=== PATIENT | male | born 1990 | race Caucasian/White ===

== ENCOUNTER 2019-04-22 23:22 | Inpatient (IN) | payer OTHER, SELFPAY ==
[~2019-04-22 23:22] MED LIST: BACT800T5 PO; NORC1TAB7 PO
[2019-04-22] MEDS ORDERED: LORazepam 2 MG/ML VIAL (J2060) IV STA (23:28)
[2019-04-22] MEDS ORDERED: NS 1,000 ML IV ONE (23:30)
[2019-04-22 23:42] LABS: HEMATOCRIT 46.2 % (42.0-52.0); MEAN CORPUSCULAR HEMOGLOBIN 29.5 pg (27.0-33.0); MEAN CORPUSCULAR HGB CONC 32.5 g/dl (32.0-36.5); MEAN CORPUSCULAR VOLUME 90.9 fl (80.0-96.0); PLATELET COUNT, AUTOMATED 321 10^3/uL (150-450); RED BLOOD COUNT 5.08 10^6/uL (4.30-6.10); WHITE BLOOD COUNT 11.7 10^3/uL (4.0-10.0)
[2019-04-22] MEDS ORDERED: ONDANSETRON 4MG/2ML VIAL (J2405) As Ordered ONE (23:47)
[2019-04-23] VITALS (10 sets, daily range): BP systolic 115–130; BP diastolic 60–84; O2SAT 97–100
[2019-04-23] MEDS ORDERED: ONDANSETRON 4MG/2ML VIAL (J2405) IV ONE
[2019-04-23 00:20] LABS: ACETAMINOPHEN LEVEL < 2.0 UG/ML (10.0-30.0); ALBUMIN 4.2 GM/DL (3.2-5.2); ALT/SGPT 51 U/L (12-78); BILIRUBIN,DIRECT < 0.1 MG/DL (0.0-0.2); BILIRUBIN,TOTAL 0.3 MG/DL (0.2-1.0); BLOOD UREA NITROGEN 10 MG/DL (7-18); CARBON DIOXIDE LEVEL 28 MEQ/L (21-32); CHLORIDE LEVEL 107 MEQ/L (98-107); CK-MB VALUE MASS 1.5 NG/ML (<3.6); CPK CREATINE PHOSPHOKINASE 282 U/L (39-308); CREATININE FOR GFR 1.37 MG/DL (0.70-1.30); ETHYL ALCOHOL (ETHANOL) 0.357 % (0.000-0.010); GLOMERULAR FILTRATION RATE > 60.0 (>60); GLUCOSE, FASTING 116 MG/DL (70-100); MB/CK RELATIVE INDEX 0.53 (< OR =4); POTASSIUM SERUM 4.5 MEQ/L (3.5-5.1); SALICYLATE LEVEL < 1.7 MG/DL (5.0-30.0); SODIUM LEVEL 143 MEQ/L (136-145); TOTAL PROTEIN 8.4 GM/DL (6.4-8.2); TROPONIN I < 0.02 NG/ML (< 0.10)
[2019-04-23 00:21] LABS: EOSINOPHILS 4 % (0-3); LYMPHOCYTES 44 % (16-44); MONOCYTES 7 % (0-5); NEUTROPHILS 45 % (28-66)
[2019-04-23 00:22] LABS: ANISOCYTOSIS 1+; PLATELET ESTIMATE NORMAL (NORMAL); POLYCHROMASIA 1+
--- NOTE | 2019-04-23 00:36 | REPVR ---
PROCEDURE INFORMATION: Exam: CT Head Without Contrast Exam date and time: 04/22/2019 11:28 PM Age: 28 years old Clinical indication: Injury or trauma; Fall; Initial encounter; Concussion / head injury; Additional info: Altered mental status TECHNIQUE: Imaging protocol: Computed tomography of the head without contrast. Axial and coronal reformatted images were created and reviewed. Radiation optimization: All CT scans at this facility use at least one of these dose optimization techniques: automated exposure control; mA and/or kV adjustment per patient size (includes targeted exams where dose is matched to clinical indication); or iterative reconstruction. COMPARISON: No relevant prior studies available. FINDINGS: Brain: No CT evidence of acute intracranial hemorrhage or acute territorial infarction. No significant mass effect or midline shift. Basal cisterns patent. Ventricles: Normal in size and configuration. Bones/joints: Mild age-indeterminate deformity of the anterior nasal bones. Sinuses: Minimal ethmoid, maxillary and left sphenoid sinus mucosal thickening. Mastoid air cells: Grossly unremarkable. Soft tissues: Mild multifocal scalp swelling. Mild right perinasal/premaxillary soft tissue swelling. IMPRESSION: 1. No CT evidence of acute intracranial pathology. 2. Mild age-indeterminate deformity of the anterior nasal bones. 3. Additional findings, as above. Electronically signed by: Osmany Sherwood On 04/23/2019 00:36:07 AM
--- NOTE | 2019-04-23 00:38 | REPVR ---
PROCEDURE INFORMATION: Exam: CT Maxillofacial Without Contrast, Sinus Exam date and time: 04/22/2019 11:28 PM Age: 28 years old Clinical indication: Injury or trauma; Fall; Initial encounter; Concussion /head injury; Loss of consciousness not known; Additional info: Altered mental status TECHNIQUE: Imaging protocol: CT Maxillofacial without contrast. Focus on the sinuses. Axial and coronal reformatted images were created and reviewed. Radiation optimization: All CT scans at this facility use at least one of these dose optimization techniques: automated exposure control; mA and/or kV adjustment per patient size (includes targeted exams where dose is matched to clinical indication); or iterative reconstruction. COMPARISON: No relevant prior studies available. FINDINGS: Frontal sinuses: Normal. No air-fluid levels. Ethmoid air cells: Minimal ethmoid mucosal thickening. Sphenoid sinuses: Small dependent fluid in the left sphenoid sinus. Maxillary sinuses: Minimal maxillary sinus mucosal thickening. Small dependent fluid level in the right maxillary sinus. Ostiomeatal units patent. Orbits: Orbits are normal. Globes are unremarkable. Nasal cavity/Septum: Unremarkable. Soft tissues: Mild multifocal scalp swelling. Mild right perinasal/premaxillary soft tissue swelling. Bones/joints: Mild age-indeterminate deformity of the anterior nasal bones. IMPRESSION: 1. Mild age-indeterminate deformity of the anterior nasal bones. 2. Additional findings, as above. Electronically signed by: Osmany Sherwood On 04/23/2019 00:38:47 AM
--- NOTE | 2019-04-23 00:40 | REPVR ---
PROCEDURE INFORMATION: Exam: CT Cervical Spine Without Contrast Exam date and time: 04/22/2019 11:28 PM Age: 28 years old Clinical indication: Injury or trauma; Fall; Initial encounter; Concussion /head injury; Additional info: Altered mental status TECHNIQUE: Imaging protocol: Computed tomography images of the cervical spine without contrast. Axial, coronal and sagittal reformatted images were created and reviewed. Radiation optimization: All CT scans at this facility use at least one of these dose optimization techniques: automated exposure control; mA and/or kV adjustment per patient size (includes targeted exams where dose is matched to clinical indication); or iterative reconstruction. COMPARISON: No relevant prior studies available. FINDINGS: Vertebrae: Mild reversal of the normal cervical lordosis. Alignment anatomic. Mild dextroscoliosis. No CT evidence of acute fracture, dislocation or subluxation. Vertebral body heights maintained. Discs/Spinal canal/Neural foramina: Mild multilevel degenerative changes, characterized by disc space narrowing, osteophytosis and uncovertebral and facet joint hypertrophy. Mild multilevel spinal canal and neural foraminal narrowing. Soft tissues: Grossly unremarkable Additional findings: Old right posterior 2nd rib fracture. IMPRESSION: 1. No CT evidence of acute cervical spine traumatic injury. 2. Additional findings, as above. Electronically signed by: Osmany Sherwood On 04/23/2019 00:40:40 AM
[2019-04-23] MEDS ORDERED: PROPOFOL 1,000 MG/100 ML VIAL As Ordered ONE (01:46)
[2019-04-23] MEDS ORDERED: SUCCINYLCHOLINE INJ 200 MG/10 ML VIAL (J0330) IV STA (02:32)
[2019-04-23] MEDS ORDERED: ETOMIDATE INJ 20MG/10ML VIAL IV ONE (02:45)
[2019-04-23] MEDS ORDERED: propofoL 1,000 MG in IV 1 EA IV SCH (02:45)
[2019-04-23] MEDS: propofoL 1,000 MG in IV 1 EA IV SCH ×3 (02:59→08:37)
[2019-04-23] MEDS ORDERED: NS 1,000 ML IV SCH (03:00)
[2019-04-23] MEDS ORDERED: MIDAZOLAM INJ 2 MG/2 ML VIAL (J2250) IV PRN (03:00)
[2019-04-23 05:16] LABS: BASO % 0.2 % (0.0-1.0); EOS % 0.2 % (0.0-3.0); HEMATOCRIT 44.2 % (42.0-52.0); HEMOGLOBIN 14.6 g/dl (13.5-17.5); LYMPH # 3.4 10^3/uL (1.5-5.0); LYMPH % 27.3 % (24.0-44.0); MEAN CORPUSCULAR HEMOGLOBIN 29.7 pg (27.0-33.0); MONO # 0.7 10^3/uL (0.0-0.8); MONO % 5.7 % (0.0-5.0); NEUTROPHILS # 8.1 10^3/uL (1.5-8.5); NEUTROPHILS % 65.2 % (36.0-66.0); PLATELET COUNT, AUTOMATED 271 10^3/uL (150-450); RED BLOOD COUNT 4.91 10^6/uL (4.30-6.10); WHITE BLOOD COUNT 12.4 10^3/uL (4.0-10.0)
[2019-04-23 05:42] LABS: AMPHETAMINES LEVEL URINE NEGATIVE (NEGATIVE); BARBITURATES URINE NEGATIVE (NEGATIVE); BENZODIAZEPINES URINE NEGATIVE (NEGATIVE); CANNABINOIDS URINE NEGATIVE (NEGATIVE); COCAINE METABOLITE URINE NEGATIVE (NEGATIVE); METHADONE URINE NEGATIVE (NEGATIVE); OPIATES URINE NEGATIVE (NEGATIVE); PHENCYCLIDINE URINE NEGATIVE (NEGATIVE)
--- NOTE | 2019-04-23 05:47 | ECGEPIP ---
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
[2019-04-23 05:51] LABS: ALBUMIN 3.8 GM/DL (3.2-5.2); ALT/SGPT 42 U/L (12-78); BILIRUBIN,TOTAL 0.5 MG/DL (0.2-1.0); BLOOD UREA NITROGEN 10 MG/DL (7-18); CALCIUM LEVEL 7.7 MG/DL (8.5-10.1); CARBON DIOXIDE LEVEL 27 MEQ/L (21-32); CHLORIDE LEVEL 106 MEQ/L (98-107); CHOLESTEROL LEVEL 193 MG/DL (< 200); CPK CREATINE PHOSPHOKINASE 274 U/L (39-308); CREATININE FOR GFR 0.96 MG/DL (0.70-1.30); GLOMERULAR FILTRATION RATE > 60.0 (>60); GLUCOSE, FASTING 104 MG/DL (70-100); LDH LACTATE DEHYDROGENASE 247 U/L (87-241); PHOSPHORUS LEVEL 4.8 MG/DL (2.5-4.9); POTASSIUM SERUM 3.9 MEQ/L (3.5-5.1); SODIUM LEVEL 141 MEQ/L (136-145); TOTAL PROTEIN 7.2 GM/DL (6.4-8.2); TRIGLYCERIDES LEVEL 590 MG/DL (<150)
[2019-04-23] MEDS: HEPARIN SOD (PORCINE) 5000 UNITS/ML VIAL (J1644 PER 1000UNITS) SC SCH ×3 (06:06→20:25)
[2019-04-23] MEDS: PIPERACILLIN/TAZOBACTAM SOD 3.375 GM in D5W MINI-BAG PLUS 50 ML IV SCH ×4 (06:06→20:33)
[2019-04-23] MEDS: IPRATROPIUM 0.5MG/ALBUTEROL 2.5MG INH SOL UD 3ML (DUONEB)(J7620) NEB SCH ×4 (08:03→20:00)
--- NOTE | 2019-04-23 08:25 | REP ---
Status post intubation. Comparison: 03/08/2007. Findings: Examination is limited by portable technique, underpenetration, and positioning as well as poor inspiratory effort. The endotracheal tube is nearing the sloane. Scattered opacities cannot be excluded. No definite effusion. No obvious pneumothorax. Skeletal structures are grossly intact. Impression: 1. Endotracheal tube is nearing the sloane and may warrant repositioning. 2. Scattered alveolar opacities cannot be excluded. Electronically Signed by Jose Carlos Burnett MD 04/23/2019 08:16 A
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
[2019-04-23] MEDS ORDERED: PANTOPRAZOLE 40MG INJ (PROTONIX) (C9113) IV SCH (09:00)
--- NOTE | 2019-04-23 10:57 | CCN ---
DATE: 04/23/2019 START TIME: 0935 hours STOP TIME: 1004 hours I again attended Mr. Erickson here in the intensive care unit. The patient has been examined, the chart reviewed. I spoke at length with the nurse at the bedside. He is more appropriate to interactions this morning even on low dose propofol. When sedation lightened even more, he was intermittently combative. Maximum temperature (T max) 97.5, blood pressure in the 110s, heart rate 80s and regular, respiratory rate 16 to 20 and unlabored. No new imaging from earlier this morning. Repeat white blood cell count 12.4, hemoglobin 14.6, platelet count 271,000. Sodium 141, potassium (K) of 3.9, chloride 106, CO2 of 27, BUN 10, creatinine 0.96. On exam, he has a contusion on the right forehead. Pupils reactive. Sclerae are clear. Trachea is in the midline. Chest is clear to auscultation and percussion. Chest is symmetric and no significant focal adventitious breath sounds identified. Tactile fremitus palpable throughout. Cardiac exam regular without gallop. Peripheral pulses palpable, no edema. Abdomen is soft and nontender with active bowel sounds. No convincing organomegaly or masses. Extremities: No cyanosis or clubbing. Neurologically, he is sedate but does move all extremities. The most pressing problems requiring my presence at the bedside: 1. Alcohol intoxication with obtundation. 2. Aspiration. 3. Respiratory failure on the basis of the above. RECOMMENDATIONS: At this point, we will lighten his sedation and hopefully be able to extubate him. My suspicion is that he may not be cooperative as planned. We will deal with that accordingly. As for now, we will continue intravenous antibiotics as he clearly aspirated but hopefully we can change to orals as soon as we can. Will continue IV hydration. He is on ulcer and deep vein thrombosis (DVT) prophylaxis. He will not need delirium tremens precautions as he most likely has significant alcohol still on board. Proceed as outlined above. I left the bedside at 1004 hours. An additional 29 minutes of critical care time was delivered at the bedside not including procedures.
[2019-04-23] MEDS ORDERED: AUGM875T28 PO (11:23)
[2019-04-23] MEDS: CHLORHEXIDINE GLUCONATE 0.12 % 15ML UDC (PERIDEX ORAL RINSE) MT SCH ×2 (11:23→20:29)
[2019-04-23] MEDS ORDERED: OXAZEPAM 10 MG CAP PO PRN (11:30)
[2019-04-23] MEDS ORDERED: KETOROLAC 30 MG/ML VIAL (J1885) IV ONE (11:45)
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
[2019-04-23] MEDS ORDERED: SUCCINYLCHOLINE 100 MG/5 ML SYRINGE (J0330) ONE (17:54)
[2019-04-23] MEDS ORDERED: ETOMIDATE INJ 20MG/10ML VIAL ONE (17:54)
[2019-04-23] MEDS ORDERED: IBUPROFEN 600 MG TAB PO PRN (23:15)
[2019-04-24] MEDS: PIPERACILLIN/TAZOBACTAM SOD 3.375 GM in D5W MINI-BAG PLUS 50 ML IV SCH ×2 (03:28→08:22)
[2019-04-24] MEDS: IPRATROPIUM 0.5MG/ALBUTEROL 2.5MG INH SOL UD 3ML (DUONEB)(J7620) NEB SCH ×3 (04:00→07:51)
[2019-04-24 05:00] VITALS: BP 120/76
[2019-04-24] MEDS: HEPARIN SOD (PORCINE) 5000 UNITS/ML VIAL (J1644 PER 1000UNITS) SC SCH (05:21)
[2019-04-24 07:21] LABS: BASO % 0.1 % (0.0-1.0); EOS # 0.5 10^3/uL (0.0-0.5); HEMATOCRIT 39.5 % (42.0-52.0); HEMOGLOBIN 13.4 g/dl (13.5-17.5); LYMPH # 2.6 10^3/uL (1.5-5.0); LYMPH % 22.1 % (24.0-44.0); MEAN CORPUSCULAR HEMOGLOBIN 30.5 pg (27.0-33.0); MEAN CORPUSCULAR HGB CONC 33.9 g/dl (32.0-36.5); MONO # 0.9 10^3/uL (0.0-0.8); MONO % 7.5 % (0.0-5.0); NEUTROPHILS # 7.8 10^3/uL (1.5-8.5); NEUTROPHILS % 65.8 % (36.0-66.0); PLATELET COUNT, AUTOMATED 218 10^3/uL (150-450); RED BLOOD COUNT 4.39 10^6/uL (4.30-6.10); WHITE BLOOD COUNT 11.9 10^3/uL (4.0-10.0)
[2019-04-24] MEDS: CHLORHEXIDINE GLUCONATE 0.12 % 15ML UDC (PERIDEX ORAL RINSE) MT SCH (07:52)
[2019-04-24 07:54] LABS: ALBUMIN 3.1 GM/DL (3.2-5.2); ALT/SGPT 29 U/L (12-78); BILIRUBIN,TOTAL 0.8 MG/DL (0.2-1.0); BLOOD UREA NITROGEN 13 MG/DL (7-18); CALCIUM LEVEL 7.9 MG/DL (8.5-10.1); CARBON DIOXIDE LEVEL 27 MEQ/L (21-32); CHLORIDE LEVEL 106 MEQ/L (98-107); CHOLESTEROL LEVEL 153 MG/DL (< 200); CPK CREATINE PHOSPHOKINASE 306 U/L (39-308); CREATININE FOR GFR 0.79 MG/DL (0.70-1.30); GLOMERULAR FILTRATION RATE > 60.0 (>60); GLUCOSE, FASTING 95 MG/DL (70-100); LDH LACTATE DEHYDROGENASE 203 U/L (87-241); PHOSPHORUS LEVEL 3.7 MG/DL (2.5-4.9); POTASSIUM SERUM 3.8 MEQ/L (3.5-5.1); SODIUM LEVEL 138 MEQ/L (136-145); TOTAL PROTEIN 6.8 GM/DL (6.4-8.2); TRIGLYCERIDES LEVEL 380 MG/DL (<150)
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
== END 2019-04-24 11:00 | disposition home or self-care (01) | DRG 384 ==
LOC: M ED 23:22 → M ED INP 04-23 02:59 → ENRESERV 04-23 03:57 → M ICU 04-23 04:45 → M MS5PR 04-23 14:05
PROVIDERS: ADMIT Internal Medicine Pulmonary Disease; ATTEND General Practice
PROC: 0BH17EZ Insertion of Endotracheal Airway into Trachea, Via Natural or Artificial Opening (ICD-10-PCS; principal; 2019-04-23)
PROC: 5A1935Z Respiratory Ventilation, Less than 24 Consecutive Hours (ICD-10-PCS; 2019-04-23)
DX: S00.83XA Contusion of other part of head, initial encounter (principal); J96.90 Respiratory failure, unspecified, unspecified whether with hypoxia or hypercapnia; J69.0 Pneumonitis due to inhalation of food and vomit; E87.2 Acidosis; F10.120 Alcohol abuse with intoxication, uncomplicated; R41.82 Altered mental status, unspecified; W01.198A Fall on same level from slipping, tripping and stumbling with subsequent striking against other object, initial encounter; Y92.511 Restaurant or cafe as the place of occurrence of the external cause

== ENCOUNTER → 2020-08-08 | Outpatient (CLI) | payer MEDICAID ==
[~2020-08-08] MED LIST changes: +AUGM875T28 PO
== END ==
LOC: M OUTALCOH 07:40
PROVIDERS: ATTEND Psychiatry & Neurology Psychiatry
DX: F10.20 Alcohol dependence, uncomplicated (principal)

== ENCOUNTER 2020-09-11 14:58 | Outpatient (RCR) | payer MEDICAID | END 2020-09-12 | LOC: M OUTALCOH 14:58 | PROVIDERS: ATTEND Psychiatry & Neurology Psychiatry | DX: F10.20 Alcohol dependence, uncomplicated (principal); F17.200 Nicotine dependence, unspecified, uncomplicated ==

== ENCOUNTER 2020-10-11 08:00 | Outpatient (RCR) | payer MEDICAID | END 2020-10-13 | LOC: M OUTALCOH 08:00 | PROVIDERS: ATTEND Psychiatry & Neurology Psychiatry | DX: F10.20 Alcohol dependence, uncomplicated (principal); F17.200 Nicotine dependence, unspecified, uncomplicated ==

== ENCOUNTER 2020-11-07 15:00 | Outpatient (RCR) | payer MEDICAID | END 2020-11-13 | LOC: M OUTALCOH 15:00 | PROVIDERS: ATTEND Psychiatry & Neurology Psychiatry | DX: F10.20 Alcohol dependence, uncomplicated (principal); F17.200 Nicotine dependence, unspecified, uncomplicated ==

== ENCOUNTER 2020-12-12 12:00 | Outpatient (RCR) | payer MEDICAID | END 2020-12-13 | LOC: M OUTALCOH 12:00 | PROVIDERS: ATTEND Psychiatry & Neurology Psychiatry | DX: F10.20 Alcohol dependence, uncomplicated (principal); F17.200 Nicotine dependence, unspecified, uncomplicated ==

== ENCOUNTER → 2020-12-25 | Outpatient (CLI) | payer MEDICAID | LOC: M PLALAB 09:38 | PROVIDERS: ATTEND Psychiatry & Neurology Psychiatry | DX: F10.20 Alcohol dependence, uncomplicated (principal) ==

== ENCOUNTER 2021-01-07 13:46 | Outpatient (RCR) | payer MEDICAID | END 2021-01-13 | LOC: M OUTALCOH 13:46 | PROVIDERS: ATTEND Psychiatry & Neurology Psychiatry | DX: F10.20 Alcohol dependence, uncomplicated (principal); F17.200 Nicotine dependence, unspecified, uncomplicated ==

== ENCOUNTER → 2021-01-30 | Outpatient (REF) | payer OTHER ==
[2021-01-30 12:39] LABS: BASO % 0.2 % (0.0-1.0); EOS # 0.3 10^3/uL (0.0-0.5); EOS % 2.2 % (0.0-3.0); HEMOGLOBIN 15.8 g/dl (13.5-17.5); LYMPH # 3.6 10^3/uL (1.5-5.0); LYMPH % 29.3 % (24.0-44.0); MEAN CORPUSCULAR HEMOGLOBIN 28.5 pg (27.0-33.0); MEAN CORPUSCULAR HGB CONC 32.2 g/dl (32.0-36.5); MEAN CORPUSCULAR VOLUME 88.3 fl (80.0-96.0); MONO % 7.8 % (2.0-8.0); NEUTROPHILS # 7.2 10^3/uL (1.5-8.5); NEUTROPHILS % 59.2 % (36.0-66.0); PLATELET COUNT, AUTOMATED 340 10^3/uL (150-450); RED BLOOD COUNT 5.55 10^6/uL (4.30-6.10); WHITE BLOOD COUNT 12.2 10^3/uL (4.0-10.0)
[2021-01-30 13:17] LABS: ALBUMIN 3.9 GM/DL (3.2-5.2); ALT/SGPT 45 U/L (12-78); BILIRUBIN,TOTAL 0.3 MG/DL (0.2-1.0); BLOOD UREA NITROGEN 16 MG/DL (7-18); CALCIUM LEVEL 9.4 MG/DL (8.5-10.1); CARBON DIOXIDE LEVEL 28 MEQ/L (21-32); CHLORIDE LEVEL 105 MEQ/L (98-107); CHOLESTEROL LEVEL 199 MG/DL (<200); CHOLESTEROL RISK RATIO 6.862 (<5); CREATININE FOR GFR 0.91 MG/DL (0.70-1.30); GLOMERULAR FILTRATION RATE > 60.0 (>60); GLUCOSE, FASTING 98 MG/DL (70-100); HDL CHOLESTEROL 29 MG/DL (>40); LDL CHOLESTEROL 132 MG/DL (<100); NON-HDL-C 170 MG/DL; POTASSIUM SERUM 4.8 MEQ/L (3.5-5.1); SODIUM LEVEL 141 MEQ/L (136-145); TOTAL PROTEIN 7.9 GM/DL (6.4-8.2); TRIGLYCERIDES LEVEL 188 MG/DL (<150)
== END ==
LOC: M SFHCADAM 07:46
PROVIDERS: ATTEND Physician Assistant Medical
DX: R40.0 Somnolence (principal); R53.82 Chronic fatigue, unspecified; E66.01 Morbid (severe) obesity due to excess calories; F17.220 Nicotine dependence, chewing tobacco, uncomplicated

== ENCOUNTER 2021-01-31 15:02 | Outpatient (RCR) | payer MEDICAID | END 2021-02-12 | LOC: M OUTALCOH 15:02 | PROVIDERS: ATTEND Psychiatry & Neurology Psychiatry | DX: F10.20 Alcohol dependence, uncomplicated (principal); F17.200 Nicotine dependence, unspecified, uncomplicated ==

== ENCOUNTER 2021-02-14 15:58 | Outpatient (RCR) | payer MEDICAID | END 2021-03-15 | LOC: M OUTALCOH 15:58 | PROVIDERS: ATTEND Psychiatry & Neurology Psychiatry | DX: F10.20 Alcohol dependence, uncomplicated (principal); F17.200 Nicotine dependence, unspecified, uncomplicated ==

== ENCOUNTER → 2021-03-19 | Outpatient (CLI) | payer OTHER ==
--- NOTE | 2021-03-20 15:07 | SLEEPHOME ---
DATE: 03/19/2021 ORDERED BY: JAZIEL Cabrera Diagnostic home sleep testing was performed due to concern for the obstructive sleep apnea in this patient with a history of excessive somnolence and non-restorative sleep. For testing, A NOX T3 respiratory monitoring device was used. Continuous record was made of pulse, oxygen saturation, air flow, chest and abdominal strain and body position. Eleven hours and 10 minutes of data were reviewed, there were 8 hours and 27 minutes marked as time in bed. During the interval marked time in bed there were 691 respiratory events identified of 10 seconds in duration or greater. The events were primarily obstructive, there were 16 mixed and central apneas, baseline pulse rate 74, pulse rate range 47 to 106, baseline saturation 93%, saturations fell to 56% and testing was performed in both the supine and non-supine positions. IMPRESSION: Abnormal home sleep testing with repetitive respiratory events and oxygen desaturations to 56% with a respiratory event index of 81.6 is consistent with the obstructive sleep apnea syndrome. RECOMMENDATION: The patient should be encouraged to undergo formal sleep evaluation. cc: Violette Pope PA-C
== END ==
LOC: M SLEEP HO 14:49
PROVIDERS: ATTEND Physician Assistant
DX: G47.33 Obstructive sleep apnea (adult) (pediatric) (principal)

== ENCOUNTER 2021-03-21 15:53 | Outpatient (RCR) | payer MEDICAID | END 2021-04-15 | LOC: M OUTALCOH 15:53 | PROVIDERS: ATTEND Psychiatry & Neurology Psychiatry | DX: F10.20 Alcohol dependence, uncomplicated (principal); F17.200 Nicotine dependence, unspecified, uncomplicated ==

== ENCOUNTER → 2021-04-06 | Outpatient (CLI) | payer OTHER | LOC: M SLEEP 20:00 | PROVIDERS: ATTEND Physician Assistant | DX: G47.33 Obstructive sleep apnea (adult) (pediatric) (principal) ==

== ENCOUNTER 2021-05-09 16:00 | Outpatient (RCR) | payer MEDICAID | END 2021-05-13 | LOC: M OUTALCOH 16:00 | PROVIDERS: ATTEND Psychiatry & Neurology Psychiatry | DX: F10.20 Alcohol dependence, uncomplicated (principal); F17.200 Nicotine dependence, unspecified, uncomplicated ==

== ENCOUNTER 2021-06-06 16:00 | Outpatient (RCR) | payer MEDICAID | END 2021-06-13 | LOC: M OUTALCOH 16:00 | PROVIDERS: ATTEND Psychiatry & Neurology Psychiatry | DX: F10.20 Alcohol dependence, uncomplicated (principal); F17.200 Nicotine dependence, unspecified, uncomplicated ==

== ENCOUNTER 2021-06-27 15:58 | Outpatient (RCR) | payer MEDICAID | END 2021-07-13 | LOC: M OUTALCOH 15:58 | PROVIDERS: ATTEND Psychiatry & Neurology Psychiatry | DX: F10.20 Alcohol dependence, uncomplicated (principal); F17.200 Nicotine dependence, unspecified, uncomplicated ==